=== PATIENT | female | born 1985 | race Caucasian/White ===

== ENCOUNTER 2016-10-18 20:59 | Emergency (ER) | payer BC ==
[~2016-10-18] VITALS: Ht 167.6 cm; Wt 69.0 kg
[~2016-10-18 20:59] MED LIST: ONDA4TAB7 PO; PROM25TA7 PO
--- OUTSIDE RECORDS SUMMARY | 2016-10-18 21:04 | XMS REPORT | Continuity of Care Document ---
Author Author [facility] Organization [facility] Address Unknown Phone Unavailable Support Name Relationship Address Phone LINDA CARD DO Caregiver [address] [place] [address] [place] [address] Unavailable HEIDY DENTON Next Of Kin [address] [place] [address] Insurance Providers Guarantor Gurwinder Pedroza Address [address] [place] [id number] Email DENIED 16 Payer [facility] Policy Number [id number] Subscriber's Name Gurwinder Pedroza Relationship 18 Self Group Number [id number] Advance Directives Directive Response Recorded Date/Time Advanced Directives Type None 07/20/16 11:25am Chief Complaint and Reason for Visit Chief Complaint Nausea,Vomiting,Diarrhea Reason for Visit Nausea & vomiting Drug use Problems Past Problems Medical Problem Onset Date Diarrhea Unknown Drug use Unknown Gastroenteritis Unknown Nausea & vomiting Unknown Rectal bleed Unknown Vomiting Unknown Medications Current Home Medications Medication Dose Units Route Directions Days Qty Instructions Start Date None Daily 01/02/16 Ondansetron (Zofran Odt) 4 Mg Tab.rapdis 4 Mg Oral Q8h @ 0100/0900/1700 10 Tablet Orally disintegrating tablet 06/26/16 Promethazine Hcl 25 Mg Tablet 1 Tab Oral Every 8 Hours as needed for Nausea 10 Tablet 07/20/16 Social History Social History Problem Response Recorded Date/Time Onset Date Status Hx Substance Use Y K2, LAST USE "RIGHT BEFORE I CAME IN" 07/20/2016 11:42am Not Applicable Not Applicable Hx Alcohol Use Y SOCIAL 07/20/2016 11:42am Not Applicable Not Applicable Query Response Start Date Stop Date Smoking Status Current every day smoker Hospital Discharge Instructions No hospital discharge instructions. Plan of Care Discharge Date 07/20/16 2:31pm Disposition 01 DISCHARGED HOME, SELF-CARE Condition at Discharge Stable Instructions/Education Provided Acute Nausea and Vomiting (ED) Prescriptions See Medication Section Additional Instructions/Education I want you to use the promethazine as needed for nausea. Take small frequent sips of fluids at home to help with hydration. Avoid using K2. Return to ER if unable to keep fluids down Care Plan and Goals Physician Care Plan Problem:Vomiting, K2 abuse Goal: Follow up with primary care provider Instructions: Take medications and follow care plan as discussed/written Functional Status No functional status results. Allergies, Adverse Reactions, Alerts No known allergies. Immunizations Query Response on File Recorded Date/Time Influenza Vaccine Hx NONE 07/20/16 11:42am Vital Signs Acute Vital Signs Vital Response Date/Time Temperature (Fahrenheit) 97.5 deg F (96.8 - 99.1) 07/20/2016 11:25am Temperature (Calculated Celsius) 36.52891 degrees C (36.0 - 37.3) 07/20/2016 11:25am Pulse Rate (adult) 40 bpm (60 - 100) 07/20/2016 2:23pm Respiratory Rate 12 breaths/min (10 - 20) 07/20/2016 2:23pm O2 Sat by Pulse Oximetry 98 % (90 - 100) 07/20/2016 2:23pm Blood Pressure 128/76 mm Hg 07/20/2016 2:23pm Height (Feet) 5 feet 07/20/2016 11:25am Height (Inches) 6.00 inches 07/20/2016 11:25am Weight (Kilograms) 66.900 kg 07/20/2016 11:25am Body Mass Index (BMI) 23.0 07/20/2016 11:25am Results Laboratory Results Test Name Result Units Flags Reference Collection Date/Time Result Date/ Time Comments Lipase 50 U/L 23-300 06/26/2016 12:37pm 06/26/2016 1:03pm Urine Amorphous Urates MANY 06/26/2016 1:33pm 06/26/2016 1:44pm White Blood Count 5.1 T/MM3 4.5-11.0 07/20/2016 12:09pm 07/20/2016 12: 24pm Red Blood Count 4.82 M/MM3 4.00-5.20 07/20/2016 12:09pm 07/20/2016 12: 24pm Hemoglobin 14.3 GM/DL 12-16 07/20/2016 12:09pm 07/20/2016 12:24pm Hematocrit 43.2 % 36-46 07/20/2016 12:07/20/2016 12:24pm Mean Corpuscular Volume 89.6 UM3 80-100 07/20/2016 12:07/20/2016 12:24pm Mean Corpuscular Hemoglobin 29.7 UUG 26-34 07/20/2016 12:2016 12:24pm Mean Corpuscular Hemoglobin Concent 33.1 GM/DL 31-37 07/20/2016 12:07/20/2016 12:24pm RDW Standard Deviation 39.2 FL 36.9-50.2 07/20/2016 12:07/20/2016 12:24pm Platelet Count 140 T/MM3 130-400 07/20/2016 12:07/20/2016 12:24pm Mean Platelet Volume 11.3 UM3 9.4-12.4 07/20/2016 12:07/20/2016 12 :24pm Neutrophils (%) (Auto) 76.4 % H 33-66 07/20/2016 12:07/20/2016 12: 24pm Lymphocytes (%) (Auto) 18.7 % L 23-45 07/20/2016 12:07/20/2016 12: 24pm Monocytes (%) (Auto) 4.3 % 0-9.0 07/20/2016 12:07/20/2016 12:24pm Eosinophils (%) (Auto) 0.2 % 0-4 07/20/2016 12:07/20/2016 12:24pm Basophils (%) (Auto) 0.2 % 0-2 07/20/2016 12:07/20/2016 12:24pm Immature Granulocyte % (Auto) 0.2 % 0.0-0.5 07/20/2016 12:2016 12:24pm Absolute Neutrophils (auto) 3.9 T/MM3 1.8-7.7 07/20/2016 12:2016 12:24pm Absolute Lymphocytes (auto) 1.0 T/MM3 1-4.8 07/20/2016 12:2016 12:24pm Absolute Monocytes (auto) 0.2 T/MM3 0-0.8 07/20/2016 12:2016 12:24pm Absolute Eosinophils (auto) 0.0 T/MM3 0-0.5 07/20/2016 12:09pm 2016 12:24pm Absolute Basophils (auto) 0.0 T/MM3 0-0.2 07/20/2016 12:09pm 2016 12:24pm Absolute Immature Granulocyte (auto 0.01 T/MM3 0.00-0.03 07/20/2016 12: 09pm 07/20/2016 12:24pm Icterus Index < 2 0-7 07/20/2016 12:07/20/2016 12:33pm Chemistry Specimen Hemolysis < 15 0-25 07/20/2016 12:pm 07/20/2016 1:40pm 0-25: Specimen Exhibited No Hemolysis. Turbidity < 20 0-20 07/20/2016 12:09pm 07/20/2016 12:33pm Sodium Level 142 MEQ/L 134-144 07/20/2016 12:09pm 07/20/2016 12:33pm Potassium Level 3.3 MEQ/L L 3.6-5 07/20/2016 12:09pm 07/20/2016 12:33pm Chloride Level 108 MEQ/L H 98-107 07/20/2016 12:09pm 07/20/2016 12:33pm Carbon Dioxide Level 19 MEQ/L L 22-30 07/20/2016 12:09pm 07/20/2016 12: 33pm Anion Gap 15 MEQ/L 5-15 07/20/2016 12:09pm 07/20/2016 12:33pm Blood Urea Nitrogen 12.0 MG/DL 7-17 07/20/2016 12:09pm 07/20/2016 12: 33pm Creatinine 0.6 MG/DL L 0.7-1.2 07/20/2016 12:09pm 07/20/2016 12:33pm BUN/Creatinine Ratio 20 RATIO 6-26 07/20/2016 12:09pm 07/20/2016 12: 33pm Glomerular Filtration Rate Calc 117 07/20/2016 12:0907/20/2016 12:33pm Glucose Level 166 MG/DL H 65-110 07/20/2016 12:09pm 07/20/2016 12:33pm Calculated Osmolality 277 MOSM/KG 261-280 07/20/2016 12:2016 12:33pm Calcium Level 9.5 MG/DL 8.4-10.2 07/20/2016 12:07/20/2016 12:33pm Total Bilirubin 0.60 MG/DL 0.20-1.30 07/20/2016 12:07/20/2016 12: 33pm Alkaline Phosphatase 59 U/L 38-126 07/20/2016 12:07/20/2016 12: 33pm Total Protein 7.5 G/DL 6.3-8.2 07/20/2016 12:07/20/2016 12:33pm Albumin 4.5 G/DL 3.5-5.0 07/20/2016 12:07/20/2016 12:33pm Globulin 3.0 G/DL 2.4-3.6 07/20/2016 12:07/20/2016 12:33pm Albumin/Globulin Ratio 1.5 RATIO 1.1-2.2 07/20/2016 12:07/20/2016 12:33pm Aspartate Amino Transf (AST/SGOT) 26 U/L 14-36 07/20/2016 12:pm 07/20 12:33pm Alanine Aminotransferase (ALT/SGPT) 24 U/L 9-52 07/20/2016 12:pm 12:33pm Troponin I < 0.012 ng/ml 0-0.12 07/20/2016 12:pm 07/20/2016 1:40pm Troponin values with a difference of 55% increase from orginal troponin value represent a true biological DELTA value. (%increase Calc=Orginal Troponin value, divided by subsequent Troponin value, multiplied by 100) Alcohol, Quantitative <10 MG/DL <10 07/20/2016 12:07/20/2016 12: 33pm Urine Collection Type CLEANCATCH-MIDSTREAM 07/20/2016 1:2016 1:32pm Urine Color YELLOW YELLOW 07/20/2016 1:07/20/2016 1:32pm Urine Turbidity CLEAR CLEAR 07/20/2016 1:pm 07/20/2016 1:32pm Urine Specific [place] 1.020 1.015-1.025 07/20/2016 1:2016 1:32pm Urine pH 8.5 H 5.0-8.0 07/20/2016 1:25pm 07/20/2016 1:32pm Urine Leukocyte Esterase NEGATIVE NEGATIVE 07/20/2016 1:25pm 2016 1:32pm Urine Nitrite NEGATIVE NEGATIVE 07/20/2016 1:25pm 07/20/2016 1:32pm Urine Protein 1+ A NEGATIVE 07/20/2016 1:25pm 07/20/2016 1:32pm Urine Glucose (UA) NEGATIVE NEGATIVE 07/20/2016 1:25pm 07/20/2016 1: 32pm Urine Ketones 3+ A NEGATIVE 07/20/2016 1:25pm 07/20/2016 1:32pm Urine Urobilinogen 0.2 EU/DL NORMAL 07/20/2016 1:25pm 07/20/2016 1: 32pm Urine Bilirubin NEGATIVE NEGATIVE 07/20/2016 1:25pm 07/20/2016 1: 32pm Urine Blood NEGATIVE NEGATIVE 07/20/2016 1:25pm 07/20/2016 1:32pm Urine WBC 1-3 /HPF 0-5 07/20/2016 1:25pm 07/20/2016 1:45pm Urine RBC NONE SEEN /HPF 0-3 07/20/2016 1:25pm 07/20/2016 1:45pm Urine Squamous Epithelial Cells 0-5 07/20/2016 1:25pm 07/20/2016 1: 45pm Urine Bacteria 2+ H NEGATIVE 07/20/2016 1:25pm 07/20/2016 2:00pm Urine Mucus PRESENT 07/20/2016 1:25pm 07/20/2016 1:45pm Urine Culture Indicated CULT NOT INDICATED 07/20/2016 1:25pm 2016 2:00pm Procedures Procedure Status Date Provider(s) Comprehen metabolic panel Completed 06/26/16 Urinalysis auto w/scope Completed 06/26/16 Assay of lipase Completed 06/26/16 Complete cbc w/auto diff wbc Completed 06/26/16 Hydrate iv infusion add-on Completed 06/26/16 Ther/proph/diag inj iv push Completed 06/26/16 Emergency dept visit Completed 06/26/16 077915"INJECTION, ONDANSETRON HYDROCHLORIDE, PER 1 MG" Completed 06/26/16 680575"INFUSION, NORMAL SALINE SOLUTION , 1000 CC" Completed 06/26/16 Encounters Encounter Location Arrival/Admit Date Discharge/Depart Date Attending Provider Departed Emergency Room [facility] 07/20/16 11:21am 07/20/16 2: 31pm LINDA CARD DO Departed Emergency Room [facility] 06/26/16 11:54am 06/26/16 2: 05pm ALLY NETTLES MD Recent Diagnosis
--- OUTSIDE RECORDS SUMMARY | 2016-10-18 21:04 | XMS REPORT | Continuity of Care Document ---
Author Author [facility] Organization [facility] Address Unknown Phone Unavailable Allergies Active Description Code Type Severity Reaction Onset Reported/Identified Relationship to Patient Clinical Status Yes Cat Dander CATDANDER Miscellaneous Allergy Mild sneeze 10/21/2011 Yes pollen,dust pollen,dust Mild sneeze 10/21/2011 Medications Problems Procedures Results Encounters ACCT No. Visit Date/Time Discharge Status Pt. Type Provider Facility Loc./Unit Complaint [id number] 08/26/2012 16:30:00 2012 15:59:00 [id number] 01/13/2012 13:45:00 2011 23:59:59 CLS Outpatient Memo ROBERTS, [facility] HMG.OBGYN [id number] 12/06/2013 15:35:00 Document Registration
[2016-10-18 21:30] VITALS: TEMP 98.5; Ht 167.6 cm; Wt 69.0 kg
--- NOTE | 2016-10-18 21:58 | ERPDOC ---
Departure Disposition Decision Date: October 18, 2016 Disposition Decision Time: 23:14 Disposition: 01 DISCHARGED HOME, SELF-CARE Impression Impression Impression: Primary Impression: Wrist pain, chronic Additional Impression: Chronic thoracic back pain Severity: Moderate Condition: Stable Seen By: Physician only Patient Instructions: Carpal Tunnel Syndrome (GEN) Problems/Meds/Labs Reviewed?: Yes Medications reviewed and manag: Yes Additional Instructions: Voltaren gel to wrist 3-4 times daily for pain. Mobic 15 mg by mouth daily. Follow-up with primary care provider. Follow up care ordered?: Yes Mental Status: Alert, Oriented Scripts Meloxicam (Mobic) 15 Mg Tablet 1 TAB PO DAILY, #30 TAB Prov: NENO SEYMOUR MD 10/18/16 Diclofenac Sodium (Voltaren) 100 Gm Gel..gram. 1 APPLIC TOP QID Y for PAIN, #1 TUBE Prov: NENO SEYMOUR MD 10/18/16 HPI - Back Pain General Chief Complaint: Low Back Pain or Injury Stated Complaint: HAND/BACK PAIN Time Seen by Provider: 21:51 HPI - Back Pain Initial Comments 31-year-old female presents with bilateral wrist pain and back pain. 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 It sounds like she is not follow-up with either worker's comp or an outside physician and her job is now at risk. 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 She also complains of thoracic pain which keeps her from bending over or being able to lift or pull. She wants something to get her through the next couple of weeks so that she can work long enough to get benefits with it and have a physician evaluate her. Allergies: Coded Allergies: No Known Allergies (Unverified , 10/18/16) Past History Past Medical History Pt denies signifigant PMH GI: other Surgical History Denies Surgeries Social History Smoking Status: Never smoker Substance Use Type: does not use, other Alcohol Intake: none Record Review Pertinent history updated: Yes Review of Systems Musculoskeletal General: see HPI All other Systems All Other Systems: Reviewed and Negative Physical Exam General General Nourishment: well nourished, well developed, appears stated age General Body Habitus: well groomed Vitals and Pain First Documented Vital Signs Date Time Temp Pulse Resp B/P Pulse Ox O2 Delivery O2 Flow Rate FiO2 10/18/16 21:30 98.5 77 12 116/74 99 Room Air Weight: Kilograms: 69.000 Height (feet): 5 Height (inches): 6.00 Triage Pain Scale: Normal Exams: Head: Normocephalic w/o trauma Musculoskeletal: good range of motion, all extremities Integumentary: No rashes, hives, or bruising noted, hair and nails, without abnormality Musculoskeletal (brief) Comments Patient has bilateral tenderness on the wrist which is out of proportion to exam. She has positive Phalen and Tinel sign bilaterally. Differential Diagnoses Considering: Other (wrist fatigue, wrist sprain, carpal tunnel, thoracic strain ,) Progress Results/Orders Orders Procedure Category Date Status Time Wrist Left 2 View RAD 10/18/16 Taken 21:52 Wrist Right 2 View RAD 10/18/16 Taken 21:52 Thoracic Spine RAD 10/18/16 Taken Series, 3 View 21:52 LAB 10/18/16 Complete Qualitative, Urine 22:03 Lab Results Laboratory Tests Test 10/18/16 22:06 Urine Test Negative Progress Progress X-rays look appropriate except for scoliosis noted. Patient has wrist braces at home that she can wear. She would really like something for pain, as in a narcotic that she can takes she can go to work. I discussed that we don't do that through the emergency department, she can see her primary care provider to work out chronic pain management after she has the wrist evaluated. Diclofenac gel to be applied 3 times daily, to see if this will help with some of the wrist pain. Mobic, can be used as an oral anti-inflammatory. Recommend ice to wrist and evening and to wear splints. NENO SEYMOUR MD October 18, 2016 21:58
--- OUTSIDE RECORDS SUMMARY | 2016-10-18 22:04 | XMS REPORT | Continuity of Care Document ---
Author Author [facility] Organization [facility] Address Unknown Phone Unavailable Allergies Active Description Code Type Severity Reaction Onset Reported/Identified Relationship to Patient Clinical Status Yes Cat Dander CATDANDER Miscellaneous Allergy Mild sneeze 10/21/2011 Yes pollen,dust pollen,dust Mild sneeze 10/21/2011 Medications Problems Procedures Results Encounters ACCT No. Visit Date/Time Discharge Status Pt. Type Provider Facility Loc./Unit Complaint [id number] 08/26/2012 16:30:00 2012 15:59:00 [id number] 01/13/2012 13:45:00 2011 23:59:59 CLS Outpatient Memo ROBERTS, [facility] HMG.OBGYN [id number] 12/06/2013 15:35:00 Document Registration
--- NOTE | 2016-10-18 22:05 | NUR ---
BR PT AMBULATES TO BR TO PROVIDE URINE SAMPLE FOR TESTING.
[2016-10-18] MEDS ORDERED: MELO15TA12 PO (23:18)
[2016-10-18] MEDS ORDERED: DICL100G5 TOP (23:18)
[2016-10-18 23:32] VITALS: BP 116/82; PULSE 61; RESP 12; O2SAT 97
--- NOTE | 2016-10-18 23:32 | NUR ---
DEPART PT IS DISCHARGED AT THIS TIME, INSTRUCTIONS ARE REVIEWED AND UNDERSTANDING IS VOICED. PT LEAVES AMBULATORY.
--- NOTE | 2016-10-19 08:01 | DI ---
Indication: ITS.REASON: pain PROCEDURE: WRIST RIGHT 2 VIEW: Encounter: Initial Comparison: None Findings: There is no acute fracture, dislocation or malalignment identified. Impression: No acute osseous abnormality. .
--- NOTE | 2016-10-19 08:03 | DI ---
Indication: ITS.REASON: Left wrist pain PROCEDURE: WRIST LEFT 2 VIEW: Encounter: Initial Comparison: None Findings: There is no acute fracture, dislocation or malalignment identified. Impression: No acute osseous abnormality. .
--- NOTE | 2016-10-19 08:16 | DI ---
Indication: ITS.REASON: Back pain PROCEDURE: THORACIC SPINE SERIES, 3 VIEW: Encounter: Initial Comparison: None Findings: Mild dextroscoliotic curvature of the midthoracic spine. No acute fracture or subluxation. The vertebral body heights and disk spaces are maintained. Impression: No acute fracture .
== END 2016-10-18 23:32 | disposition home or self-care (01) ==
LOC: ED 20:59
DX: M25.532 Pain in left wrist (principal); M25.531 Pain in right wrist; M54.6 Pain in thoracic spine; G89.29 Other chronic pain
CPT/HCPCS: 81025